=== PATIENT | female | born 1985 | race Caucasian/White ===

== ENCOUNTER 2016-09-06 19:11 | Emergency (ER) | payer OTHER ==
[~2016-09-06] VITALS: Ht 172.7 cm; Wt 150.3 kg
[~2016-09-06 19:11] MED LIST: ALEVE220 M2 PO; ATIVAN1 MG PO; LOESTRIN1 EACH PO; NOHOMEMEDS; ZOLOFT50 MG PO
[2016-09-06 20:19] LABS: HEMATOCRIT 43.5 % (36.0-46.0); MCH 30.2 PG (29.0-34.0); MCHC 34.3 G/DL (30.0-36.0); MCV 88.1 FL (83-99); MEAN PLAT.VOLUME 9.5 uM^3 (9.5-12.4); PLATELET COUNT 316 K/uL (156-360); RBC DIS.WIDTH-CV 13.2 % (11.8-14.6); RBC DIS.WIDTH-SD 41.9 % (39-53); RED BLOOD COUNT 4.94 M/uL (3.80-5.20); WHITE BLOOD COUNT 5.5 K/uL (4.1-10.2)
[2016-09-06 20:21] LABS: CHLORIDE 102 mEq/L (99-109); POTASSIUM 3.8 mEq/L (3.7-5.4); SODIUM 137 mEq/L (136-147)
[2016-09-06 20:23] LABS: GLUCOSE 93 mg/dL (70-99)
[2016-09-06 20:24] LABS: ANION GAP 13 MEQ/L (2-14)
[2016-09-06 20:27] LABS: GFR ESTIMATE (CALCULATED) > 59 mL/min/
[2016-09-06 20:28] LABS: UREA NITROGEN (BUN) 12 mg/dL (9-23)
[2016-09-06 21:11] LABS: INTERNAL CONTROL VALID? YES; MONOSPOT (MONONUCLEOSIS SEROL) NEGATIVE
[2016-09-06] MEDS ORDERED: CLEOCIN300 MG PO (21:24)
[2016-09-06 22:00] LABS: INFLUENZA A VIRAL ANTIGEN POSITIVE; INFLUENZA B VIRAL ANTIGEN NEGATIVE
[2016-09-06] MEDS ORDERED: MUCINEX D ER T1 EAC1 PO (22:15)
[2016-09-06] MEDS ORDERED: MOTRIN800 MG PO (22:15)
[2016-09-06] MEDS ORDERED: HYCODAN SYRUP480 ML PO (22:15)
[2016-09-06 22:29] VITALS: BP 141/84
== END 2016-09-06 22:33 | disposition home or self-care (01) ==
LOC: EME 19:11
PROVIDERS: Physician Assistant
DX: J10.1 Influenza due to other identified influenza virus with other respiratory manifestations (principal); Z88.1 Allergy status to other antibiotic agents; Z88.0 Allergy status to penicillin
CPT/HCPCS: 71020; 80048; 85027; 86308; 87502; 99281; 99284

== ENCOUNTER 2017-07-09 13:56 | Emergency (ER) | payer OTHER ==
[~2017-07-09] VITALS: Ht 172.7 cm; Wt 170.4 kg
[~2017-07-09 13:56] MED LIST changes: +CLEOCIN300 MG PO; +HYCODAN SYRUP480 ML PO; +MOTRIN800 MG PO; +MUCINEX D ER T1 EAC1 PO
[2017-07-09 14:42] LABS: ADD MIUA? YES; BILIRUBIN NEGATIVE; BLOOD NEGATIVE; COLOR YELLOW ((YELLOW)); GLUCOSE (STRIP) NEGATIVE; KETONES NEGATIVE; LEUKOCYTES NEGATIVE; NITRITE NEGATIVE; PROTEIN (STRIP) NEGATIVE; SPECIFIC GRAVITY 1.018 (1.000-1.030); UROBILINOGEN 0.2 MG/DL (0.2-1.0)
[2017-07-09 14:43] LABS: HEMATOCRIT 37.8 % (36.0-46.0); MCH 29.8 PG (29.0-34.0); MCHC 33.6 G/DL (30.0-36.0); MCV 88.7 FL (83-99); MEAN PLAT.VOLUME 9.2 uM^3 (9.5-12.4); PLATELET COUNT 355 K/uL (156-360); RBC DIS.WIDTH-CV 12.6 % (11.8-14.6); RBC DIS.WIDTH-SD 41.4 % (39-53); RED BLOOD COUNT 4.26 M/uL (3.80-5.20); WHITE BLOOD COUNT 7.6 K/uL (4.1-10.2)
[2017-07-09 14:50] LABS: MUCUS NONE SEEN /LPF
[2017-07-09 14:51] LABS: CHLORIDE 104 mEq/L (99-109); POTASSIUM 4.2 mEq/L (3.7-5.4); SODIUM 138 mEq/L (136-147)
[2017-07-09 14:54] LABS: GLUCOSE 91 mg/dL (70-99)
[2017-07-09 14:55] LABS: ANION GAP 8 MEQ/L (2-14)
[2017-07-09 14:56] LABS: TOTAL BILIRUBIN 0.8 mg/dL (0.0-1.0)
[2017-07-09 14:57] LABS: ALKALINE PHOSPHATASE 79 IU/L (3-129); GFR ESTIMATE (CALCULATED) > 59 mL/min/
[2017-07-09 14:58] LABS: UREA NITROGEN (BUN) 13 mg/dL (9-23)
[2017-07-09 15:01] LABS: LIPASE 11 U/L (1.0-51.0)
[2017-07-09 15:06] LABS: QUANTITATIVE HCG < 4.0 MIU/ML
[2017-07-09 15:10] LABS: BACTERIA 1+ /HPF; CASTS NONE SEEN /LPF; CRYSTALS PRESENT; EPITHELIAL CELLS 1+ /HPF; RED BLOOD CELLS NONE SEEN /HPF (0-5); WHITE BLOOD CELLS NONE SEEN /HPF (0-5)
[2017-07-09 15:11] LABS: AMORPHOUS PHOSPHATE CRYSTALS 3+
[2017-07-09] MEDS ORDERED: CITRATE OF MAG296 ML PO (16:10)
[2017-07-09] MEDS ORDERED: COLACE100 MG PO (16:10)
[2017-07-09] MEDS ORDERED: MIRALAX17 GM PO (16:10)
[2017-07-09] MEDS ORDERED: NORCO 5/3251 TABLET PO (16:10)
[2017-07-09 16:44] VITALS: BP 137/82
== END 2017-07-09 16:48 | disposition home or self-care (01) ==
LOC: EME 13:56
PROVIDERS: Physician Assistant
DX: R10.12 Left upper quadrant pain (principal); K59.00 Constipation, unspecified; R05 Cough; K57.30 Diverticulosis of large intestine without perforation or abscess without bleeding; Z90.49 Acquired absence of other specified parts of digestive tract
CPT/HCPCS: 74177; 80053; 81003; 83690; 84702; 85027; J2270; J7040

== ENCOUNTER 2017-07-12 17:22 | Emergency (ER) | payer OTHER ==
[~2017-07-12] VITALS: Ht 172.7 cm; Wt 166.7 kg
[~2017-07-12 17:22] MED LIST changes: +CITRATE OF MAG296 ML PO; +COLACE100 MG PO; +MIRALAX17 GM PO; +NORCO 5/3251 TABLET PO
[2017-07-12 18:56] LABS: HEMATOCRIT 40.8 % (36.0-46.0); MCH 29.6 PG (29.0-34.0); MCHC 33.8 G/DL (30.0-36.0); MCV 87.6 FL (83-99); PLATELET COUNT 369 K/uL (156-360); RBC DIS.WIDTH-CV 12.5 % (11.8-14.6); RBC DIS.WIDTH-SD 40.2 % (39-53); RED BLOOD COUNT 4.66 M/uL (3.80-5.20); WHITE BLOOD COUNT 7.3 K/uL (4.1-10.2)
[2017-07-12 19:04] LABS: CHLORIDE 101 mEq/L (99-109)
[2017-07-12 19:05] LABS: POTASSIUM 4.6 mEq/L (3.7-5.4); SODIUM 137 mEq/L (136-147)
[2017-07-12 19:07] LABS: GLUCOSE 98 mg/dL (70-99)
[2017-07-12 19:08] LABS: ANION GAP 9 MEQ/L (2-14)
[2017-07-12 19:09] LABS: TOTAL BILIRUBIN 0.9 mg/dL (0.0-1.0)
[2017-07-12 19:10] LABS: ALKALINE PHOSPHATASE 86 IU/L (3-129)
[2017-07-12 19:11] LABS: GFR ESTIMATE (CALCULATED) > 59 mL/min/
[2017-07-12 19:15] LABS: LIPASE 7 U/L (1.0-51.0)
[2017-07-12 19:20] LABS: QUANTITATIVE HCG < 4.0 MIU/ML
[2017-07-12 19:23] LABS: UREA NITROGEN (BUN) 12 mg/dL (9-23)
[2017-07-12 19:57] LABS: INTERNAL CONTROL VALID? YES; MONOSPOT (MONONUCLEOSIS SEROL) NEGATIVE
[2017-07-12 21:05] LABS: ADD MIUA? NO; BILIRUBIN NEGATIVE; BLOOD NEGATIVE; COLOR YELLOW ((YELLOW)); GLUCOSE (STRIP) NEGATIVE; KETONES NEGATIVE; LEUKOCYTES NEGATIVE; NITRITE NEGATIVE; PROTEIN (STRIP) NEGATIVE; SPECIFIC GRAVITY 1.025 (1.000-1.030); UCUL ADDED? NO; UROBILINOGEN 0.2 MG/DL (0.2-1.0)
[2017-07-12] MEDS ORDERED: VALIUM5 MG PO (21:09)
[2017-07-12] MEDS ORDERED: NAPROXEN500 MG PO (21:09)
[2017-07-12 21:24] VITALS: BP 167/104
== END 2017-07-12 21:25 | disposition home or self-care (01) ==
LOC: EXP 17:22 → EME 17:22 → EXP 21:25
PROVIDERS: Physician Assistant
DX: R10.9 Unspecified abdominal pain (principal); K21.9 Gastro-esophageal reflux disease without esophagitis; I10 Essential (primary) hypertension; F32.9 Major depressive disorder, single episode, unspecified; Z86.73 Personal history of transient ischemic attack (TIA), and cerebral infarction without residual deficits; Z85.9 Personal history of malignant neoplasm, unspecified; Z90.49 Acquired absence of other specified parts of digestive tract; Z88.0 Allergy status to penicillin
CPT/HCPCS: 71020; 80053; 81003; 83690; 84702; 85027; 85379; 86308; 99281; 99285